=== PATIENT | male | born 1950 | race Caucasian/White ===

== ENCOUNTER 2018-12-07 08:43 | Day surgery (SDC) | payer MEDICARE, BC ==
[2018-12-07] MEDS: GABAPENTIN 300 MG CAP PO (09:47)
[2018-12-07] MEDS: DEXAMETHASONE 1 MG TAB PO (09:47)
[2018-12-07] MEDS: LACTATED RINGER'S 1,000 ML IV* (09:49)
[2018-12-07] MEDS ORDERED: BUPIVACAINE 0.5% (SDV) 30 ML, morphine SULFATE (PF) 8 MG, EPINEPHrine 0.3 MG, KETOROLAC... IRR (10:00)
[2018-12-07] MEDS ORDERED: DESFLURANE 15 MIN (10:00)
[2018-12-07] MEDS ORDERED: GLYCOPYRROLATE 0.4 MG INJ (10:00)
[2018-12-07] MEDS ORDERED: NEOSTIGMINE 10 MG INJ (10:00)
[2018-12-07] MEDS ORDERED: TRANEXAMIC ACID 1GM/100ML(PMX) 100 ML IVPB (10:00)
[2018-12-07] MEDS ORDERED: PROPOFOL 20 ML (10:11)
[2018-12-07] MEDS ORDERED: MIDAZOLAM 1 MG/ML 2 ML INJ (10:12)
[2018-12-07] MEDS ORDERED: CEFAZOLIN 1 GM INJ (10:12)
[2018-12-07] MEDS ORDERED: ROCURONIUM 50 MG INJ (10:12)
[2018-12-07] MEDS ORDERED: ROPIVACAINE 0.5 % 30 ML VIAL (10:12)
[2018-12-07] MEDS ORDERED: METOCLOPRAMIDE 10 MG INJ IV (10:30)
[2018-12-07] MEDS ORDERED: HYDROmorphONE 1 MG/5 ML IV SYRINGE IV ×2 (10:30)
[2018-12-07] MEDS ORDERED: MEPERIDINE 25 MG INJ IV (10:30)
[2018-12-07] MEDS ORDERED: ONDANSETRON 4 MG INJ IV (10:30)
[2018-12-07] MEDS ORDERED: DIPHENHYDRAMINE 50 MG INJ IV (10:30)
[2018-12-07] MEDS ORDERED: LABETALOL HCL 20MG INJ IV (10:30)
[2018-12-07] MEDS ORDERED: OXYCODONE/ACETAMINOPHEN (5/325) TAB PO (10:30)
[2018-12-07] MEDS ORDERED: hydrALAzine 20 MG INJ IV (10:30)
[2018-12-07] MEDS ORDERED: FENTAnyl 50 MCG/ML VIAL IV ×3 (10:30)
[2018-12-07] MEDS ORDERED: EPHEDrine SULFATE 50 MG/5 ML SYG IV (10:30)
[2018-12-07] MEDS ORDERED: hydrALAzine 20 MG INJ (12:14)
[2018-12-07] MEDS ORDERED: ONDANSETRON 4 MG INJ (12:14)
[2018-12-07] MEDS ORDERED: DEXAMETHASONE 4 MG/ML 5 ML INJ (12:14)
[2018-12-07] MEDS ORDERED: METOCLOPRAMIDE 10 MG INJ (12:14)
[2018-12-07] MEDS ORDERED: KETOROLAC 30 MG INJ (12:14)
[2018-12-07] MEDS ORDERED: NALOXONE (0.4 MG/ML) INJ (13:27)
[2018-12-07] MEDS: HYDROmorphONE 1 MG/5 ML IV SYRINGE IV (14:21)
[2018-12-07] MEDS: OXYCODONE/ACETAMINOPHEN (5/325) TAB PO (16:50)
== END 2018-12-07 17:17 | disposition home or self-care (01) ==
LOC: SDS 08:43
DX: M75.101 Unspecified rotator cuff tear or rupture of right shoulder, not specified as traumatic (principal); M25.811 Other specified joint disorders, right shoulder; M65.811 Other synovitis and tenosynovitis, right shoulder; M19.011 Primary osteoarthritis, right shoulder; E11.9 Type 2 diabetes mellitus without complications; I10 Essential (primary) hypertension; E87.5 Hyperkalemia
CPT/HCPCS: 29823; 82962